=== PATIENT | female | born 2000 | race Caucasian/White ===

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

== ENCOUNTER 2023-11-04 18:23 | Emergency (ER) | payer OTHER, SELFPAY ==
[2023-11-04] VITALS (16 sets, daily range): BP systolic 109–170; BP diastolic 57–81; PULSE 63–100; RESP 12–19; TEMP 36.8–37.4; O2SAT 97–100
--- NOTE | 2023-11-04 18:26 | ED.ALLEREA ---
HPI - Allergic Reaction General Chief complaint: Allergic Reaction Stated complaint: Allergic Reaction Time Seen by Provider: 11/04/23 18:26 Source: patient Mode of arrival: ambulatory Limitations: no limitations History of Present Illness HPI narrative: Charity is a 22-year-old female patient presenting to the ER today with complaints of a allergic reaction to dairy. She reports she ate an instant oatmeal and she did not realize that it had dairy. This happened approximately 15 minutes prior to arrival. She has taken 75mg of Benadryl and has injected 2 0.6 mg epi prior to arrival. [place] as though her throat was closing up after taking 3 bites of the oatmeal. Related Data Home Medications Medication Instructions Recorded Confirmed Saccharomyces boulardii 250 mg 250 mg PO BID 03/27/23 capsule (Daily Probiotic (S. boulardii)) epinephrine 0.3 mg/0.3 mL 0.3 mg IM ONCE 03/27/23 injection, auto-injector Allergies Allergy/AdvReac Type Severity Reaction Status Date / Time cefdinir Allergy Anaphylaxis Verified 11/04/23 18:30 lactase [From Dairy Aid] Allergy Anaphylaxis Verified 11/04/23 18:30 Review of Systems Review of Systems: Pertinent positives per HPI. Patient denies any fever, chills, rash, headache, visual changes, dizziness, cough, runny nose, sore throat, chest pain, palpitations, nausea, vomiting, diarrhea, constipation, abdominal pain, or any urinary issues. [facility] Past Medical History Medical History (Updated 11/04/23 @ 19:17 by Diego Anguiano APRN) Allergies Surgical History Surgical History H/O oral surgery Family History Family History Other Depression Diabetes mellitus Social History Social History Smoking status: Never smoker Alcohol intake: current Substance use: never Substance use type: does not use Do You Feel Safe in your Home?: Yes Lack of Transportation: No Lack of Food: Never True Current Housing: I Have Housing Concerned About Future Housing: No Difficulty Paying Gas/Electric Bills: No Difficulty Paying for Meds: No Currently Unemployed: No Education: High School Diploma/GED Difficulty w/ Childcare or Family Care: No Comments At the time of my signature, I reviewed and agree with the nursing past medical, surgical, social, and family history. There is no relevant family history pertinent to the patient complaint. Exam Narrative: General: Well-developed, well nourished, in no apparent distress Head: Normocephalic, atraumatic Eyes: Pupils equally round and reactive to light bilaterally, EOM intact, sclera and conjunctive clear, no discharge, lids normal Ears: TMs intact and clear, ear canals clear, no drainage, grossly hearing normal. Nose: Nares patent, no discharge, no inflammation, no sinus tenderness. Mouth: Oropharynx without lesions or masses, good dentition, MMM. Neck: Supple, trachea midline, no enlargement of anterior or posterior cervical nodes, no thyroid masses or goiter palpable. Cardio: Regular rate and rhythm, s1 and s2 normal, no murmur appreciated. Resp: Clear to auscultation bilaterally anteriorly and posteriorly, no rhonchi, rales, wheezing or rubs Course Course Emergency Course: Portions of this record may have been created with voice recognition software. Vital Signs Vital signs: Vital Signs Temperature 36.8 C 11/04/23 18:27 Pulse Rate 100 11/04/23 18:27 Respiratory Rate 18 11/04/23 18:27 Blood Pressure 170/81 H 11/04/23 18:27 Pulse Oximetry 100 11/04/23 18:27 Oxygen Delivery Room Air 11/04/23 18:27 Temperature 36.8 C 11/04/23 18:27 Pulse Rate 63 11/04/23 22:20 Respiratory Rate 19 11/04/23 22:20 Blood Pressure 117/62 11/04/23 22:20 Pulse Oximetry 98 11/04/23 22:20 Oxygen
[2023-11-04] MEDS: methylPREDNISolone SOD SUCC 125 MG VIAL IV PUSH (18:35)
[2023-11-04] MEDS: SODIUM CHLORIDE 0.9% IV 1,000 ML 150 ML IV CONT (18:35)
[2023-11-04] MEDS: FAMOTIDINE 20 MG/2 ML VIAL IV PUSH (18:35)
== END 2023-11-04 22:55 | disposition home or self-care (01) ==
PROVIDERS: Emergency Provider Nurse Practitioner Family; PCP Pediatrics
DX: T78.07XA Anaphylactic reaction due to milk and dairy products, initial encounter (principal)
CPT/HCPCS: 96361; 96374; 96375; 99284; J2919; J7030